=== PATIENT | female | born 1950 | race Caucasian/White ===

== ENCOUNTER 2017-02-07 13:49 | Emergency (ER) | payer MEDICARE, OTHER, SELFPAY ==
--- NOTE | 2017-02-07 14:31 | EDM.PDOC ---
[id number] Complaint: FALL RIGHT WRIST, POSSIBLE FRACTURE Time Seen by Provider: 02/07/17 14:15 Source of Information: Reports: Patient History Limitations: Reports: No Limitations - History of Present Illness INITIAL COMMENTS - FREE TEXT/NARRATIVE: 66-year-old relatively healthy female fell and hurt her right wrist. Drove herself to the hospital. 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: - Infectious Disease History Infectious Disease History: Reports: Chicken Pox, Measles, Mumps - Past Surgical History GI Surgical History: Reports: Colonoscopy Social & Family History - Tobacco Use Smoking Status *Q: Never Smoker Second Hand Smoke Exposure: No - Caffeine Use Caffeine Use: Reports: Coffee - Alcohol Use Days Per Week of Alcohol Use: 0 - Recreational Drug Use Recreational Drug Use: No Review of Systems - Review of Systems Review Of Systems: See Below Constitutional: Denies: Fever Respiratory: Denies: Shortness of Breath, Cough Cardiovascular: Denies: Chest Pain GI/Abdominal: Denies: Abdominal Pain Skin: Denies: Bruising Neurological: Denies: Headache Psychiatric: Reports: No Symptoms ED EXAM, GENERAL - Physical Exam Exam: See Below Exam Limited By: No Limitations General Appearance: Alert, No Apparent Distress (Appears uncomfortable but not distressed) Respiratory/Chest: No Respiratory Distress, Lungs Clear, Other (Collarbones are nontender) Cardiovascular: Regular Rate, Rhythm Extremities: Other (Patient has tenderness and slight deformity of the right rest, distal CS is intact) Neurological: Alert, Oriented Psychiatric: Normal Affect, Normal Mood Skin Exam: Warm, Dry Course - Vital Signs Last Recorded V/S: Last Vital Signs Temp 98.1 F 02/07/17 16:15 Pulse 67 02/07/17 16:15 Resp 16 02/07/17 16:15 BP 144/78 H 02/07/17 16:15 Pulse Ox 98 02/07/17 16:15 - Orders/Labs/Meds Orders: Active Orders 24 hr Category Date Time Status Fluoro Up To 1Hr [CR] Stat Exams 02/07/17 Taken Wrist Comp Min 3V Rt [CR] Stat Exams 02/07/17 14:26 Taken Meds: Medications Discontinued Medications Generic Name Dose Route Start Last Admin Trade Name Jessika PRN Reason Stop Dose Admin Propofol Confirm 02/07/17 15:00 Diprivan 20 Ml Administered 02/07/17 15:01 Dose 200 mg .ROUTE .STK-MED ONE - Re-Assessments/Exams Free Text/Narrative Re-Assessment/Exam: 02/07/17 14:31 A right wrist x-ray was obtained. 02/07/17 15:49 There was a significant displaced distal radius fracture. Dr. Antolin Saenz, orthopedics, was consulted and using propofol sedation the fracture was reduced satisfactorily. The reduction and splinting was done by Dr. Saenz. Patient was then placed in a sling and will recheck with orthopedics next week. Departure - Departure Time of Disposition: 16:36 Disposition: Home, Self-Care 01 Condition: good Clinical Impression: Distal radius fracture, right Qualifiers: Encounter type: initial encounter Fracture type: closed Fracture morphology: Colles' Qualified Code(s): S52.531A - Colles' fracture of right radius, initial encounter for closed fracture - Discharge Information Instructions: Wrist Fracture Treated With Immobilization Referrals: PCP,None [Primary Care Provider] - Forms: ED Department Discharge Care Plan Goals: Keep arm in splint and sling until next week so recheck on Saturday. See Dr. Prem Saenz Saturday. Ibuprofen or naproxen will help with pain, add stronger pain medication as prescribed. Return sooner if concerns. - My Orders Last 24 Hours: My Active Orders 02/07/17 Fluoro Up To 1Hr [CR] Stat 02/07/17 14:26 Wrist Comp Min 3V Rt [CR] Stat - Assessment/Plan Last 24 Hours: My Active Orders 02/07/17 Fluoro Up To 1Hr [CR] Stat 02/07/17 14:26 Wrist Comp Min 3V Rt [CR] Stat
[2017-02-07] MEDS ORDERED: Propofol 200 MG/20 ML SDV ONE (15:00)
--- NOTE | 2017-02-07 15:30 | PCM.CONS ---
H&P History of Present Illness - General Date of Service: 02/07/17 Source of Information: Patient History Limitations: Reports: No Limitations - History of Present Illness Onset of Symptoms: Reports: Today, Sudden Duration of Symptoms: Reports: Hour(s): Location: Reports: Upper Extremity, Right Quality: Reports: Ache, Burning, Pressure Severity: Severe Improves with: Reports: None Worsens with: Reports: Movement Right Wrist Pain Score (Numeric/FACES): 10 - Related Data Allergies/Adverse Reactions: Allergies Allergy/AdvReac Type Severity Reaction Status Date / Time No Known Allergies Allergy Verified 02/07/17 14:15 Home Medications: Home Meds Hydrochlorothiazide/Lisinopril [Lisinopril-HCTZ 20-25 MG] 1 tab PO DAILY [History] Past Medical History Cardiovascular History: Reports: Hypertension 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: - Infectious Disease History Infectious Disease History: Reports: Chicken Pox, Measles, Mumps - Past Surgical History GI Surgical History: Reports: Colonoscopy Social & Family History - Tobacco Use Smoking Status *Q: Never Smoker Second Hand Smoke Exposure: No - Caffeine Use Caffeine Use: Reports: Coffee - Alcohol Use Days Per Week of Alcohol Use: 0 - Recreational Drug Use Recreational Drug Use: No H&P Review of Systems - Review of Systems: Review Of Systems: See Below General: Reports: No Symptoms HEENT: Reports: No Symptoms Pulmonary: Reports: No Symptoms Cardiovascular: Reports: No Symptoms Gastrointestinal: Reports: No Symptoms Genitourinary: Reports: No Symptoms Musculoskeletal: Reports: Arm Pain, Hand Pain Skin: Reports: No Symptoms Psychiatric: Reports: No Symptoms Neurological: Reports: No Symptoms Hematologic/Lymphatic: Reports: No Symptoms Immunologic: Reports: No Symptoms Exam - Exam Exam: See Below - Vital Signs Vital Signs: Last Vital Signs Temp 98.1 F 02/07/17 14:43 Pulse 79 02/07/17 14:43 Resp 16 02/07/17 14:43 BP 139/82 02/07/17 14:43 Pulse Ox 97 02/07/17 14:43 Weight: 185 lb 3.013 oz - Exam General: Alert, Oriented, 4 HEENT: PERRLA, Hearing Intact, Mucosa Moist & [place], Nares Patent, Normal Nasal Septum, Posterior Pharynx Clear, Conjunctiva Clear, EOMI, EACs Clear, TMs Clear Extremities: Normal Pulses Peripheral Pulses: 2+: Radial (R) Skin: Warm, Dry, Intact Neuro Extensive - Mental Status: Alert, Oriented x3, Normal Mood/Affect, Normal Cognition Consult PN Assessment/Plan Procedures: Procedures EMERGENCY DEPT VISIT (12/19/13) (1) Distal radius fracture, right SNOMED Code(s): 488072921 Code(s): S52.501A - UNSP FRACTURE OF THE LOWER END OF RIGHT RADIUS, INIT Current Visit: Yes Qualifiers: Encounter type: initial encounter Fracture type: closed Fracture morphology: Colles' Qualified Code(s): S52.531A - Colles' fracture of right radius, initial encounter for closed fracture Problem List Initiated/Reviewed/Updated: Yes Plan: I had the pleasure visiting with the patient in clinic. She is a pleasant 66- year-old female who tripped on her right. She fell her outstretched right hand. She drove herself [place] a nearby town the emergency department where she was found to have a displaced distal radius and ulnar fracture. UPPER EXTREMITY Musculoskeletal Physical Examination Constitutional: Vital signs including height and weight were reviewed and documented on the patient's chart. General appearance demonstrates normal development and overweight body habitus. HEENT: Normocephalic, atraumatic. Neurological: The patient is alert and oriented to person, place, and time. Mood and affect are appropriate. Gait and station are normal. Intact sensation is noted. Coordination and balance are normal. Right upper extremity: The skin is warm dry and intact. There is deformity of the right wrist. Distal pulses are plus to 4. Capillary refill time is less than 2 seconds. Distal sensation is grossly intact. Imaging: Multiple views of the right wrist were visualized incorporated into the decision-making process. There is an apex volar completely displaced distal radius fracture and ulnar styloid fracture present. There is radial deviation of the distal fragment of the radius. Plan: I advised the patient we should do a closed reduction. Risks and benefits of procedure explained to the patient. From cells obtained. Anesthesia was used. This was provided by emergency department physician. This was done are correct fluoroscopic visualization. A short arm splint was placed. [id number] Requesting Provider: teresa Patient History Reviewed: Yes Admission H&P Reviewed: Yes Notified Requestor: Yes
[2017-02-07 16:27] VITALS: BP 144/78
--- NOTE | 2017-02-07 20:26 | OR ---
DATE OF PROCEDURE: 02/07/2017 PREOPERATIVE DIAGNOSIS: Right distal radius and ulnar fracture closed. POSTOPERATIVE DIAGNOSIS: Right distal radius and ulnar fracture closed. PROCEDURE: Closed reduction and splinting and short-arm splint application of right distal radius and ulnar fracture. ANESTHESIA: Conscious sedation provided by Dr. Steve Ng, emergency department physician. FLUID: Lactated Ringer solution. ESTIMATED BLOOD LOSS: Zero. COMPLICATIONS: None. SPECIMEN: None. DISCHARGE DISPOSITION: The patient was discharged from the emergency room later. PROCEDURE IN DETAIL: The patient was seen in the emergency department. She was found to have the above-mentioned diagnosis. Risks and benefits of the procedure were explained to the patient. Informed consent was obtained. Conscious sedation was provided by Dr. Ng. A closed reduction was then performed followed by a short-arm splinting. Fluoroscopy was used. Final films were taken. The patient was allowed to awaken from conscious sedation. She will have a followup at 10:15 on 02/10/2017. Best Saenz DO /[id number]
--- NOTE | 2017-02-08 09:20 | CR ---
Right wrist Findings: There is a severely displaced comminuted fracture of the distal radial metaphysis. There is posterio r medial displacement of the distal fragments as well as carpus. There is a fracture of the ulnar st yloid process. The carpal bones appear intact. Impression: 1. Severely displaced comminuted fracture of the distal radius. 2. Ulnar styloid process fracture.
== END 2017-02-07 16:20 | disposition home or self-care (01) ==
LOC: JP.ED 13:49
DX: S52.531A Colles' fracture of right radius, initial encounter for closed fracture (principal); W19.XXXA Unspecified fall, initial encounter; I10 Essential (primary) hypertension; Z79.899 Other long term (current) drug therapy
CPT/HCPCS: 25605; 73110; 76000; 99283; J2704; 99284

== ENCOUNTER 2017-02-12 10:31 | Day surgery (SDC) | payer MEDICARE, OTHER, SELFPAY ==
[2017-02-12] MEDS ORDERED: Lactated Ringers 1,000 ML IV SCH (11:15)
[2017-02-12] MEDS ORDERED: ceFAZolin 2 GM in Sodium Chloride 0.9% 50 ML IV ONE (12:00)
[2017-02-12] MEDS ORDERED: Povidone-Iodine 10% Soln 118.25 ML Bottle ONE (12:05)
[2017-02-12] MEDS ORDERED: Bupivacaine 0.5%/EPINEPHrine 1:200,000 50 ML MDV ONE (12:05)
[2017-02-12] MEDS ORDERED: fentaNYL 250 MCG/5 ML SDV ONE (14:43)
[2017-02-12] MEDS ORDERED: Neostigmine Methylsulfate 1 MG/ML 5 ML Syringe ONE (14:45)
[2017-02-12] MEDS ORDERED: Propofol 200 MG/20 ML SDV ONE (14:45)
[2017-02-12] MEDS ORDERED: Succinylcholine/Normal Saline 200 MG/10 ML Syringe ONE (14:45)
[2017-02-12] MEDS ORDERED: Ondansetron 4 MG/2 ML SDV ONE (14:45)
[2017-02-12] MEDS ORDERED: Dexamethasone 4 MG/ML SDV ONE (14:45)
[2017-02-12] MEDS ORDERED: Rocuronium 50 MG/5 ML Vial ONE (14:45)
[2017-02-12] MEDS ORDERED: fentaNYL 100 MCG/2 ML SDV IVPUSH ONE (16:30)
--- NOTE | 2017-02-12 17:03 | OR ---
DATE OF PROCEDURE: 02/12/2017 PREOPERATIVE DIAGNOSIS: Right distal radius fracture, closed. POSTOPERATIVE DIAGNOSIS: Right distal radius fracture, closed. PROCEDURE: 1. Open reduction, internal fixation, right distal radius. 2. Application of short-arm splint. EDGE BANDING OFF BEARER: Meseret Perez NP. ANESTHESIA: General endotracheal intubation. FLUID: Lactated Ringer solution. ESTIMATED BLOOD LOSS: 10 mL. COMPLICATIONS: None. SPECIMEN: None. DISCHARGE DISPOSITION: Stable to PACU. HISTORY AND INDICATIONS FOR THE PROCEDURE: The patient was seen last Saturday in the ER. She fell down and falling on her outstretched right hand. I was brought in and did a closed reduction at that time and splinting. She was then subsequently seen in the clinic on Saturday. Preoperative imaging confirmed the above-mentioned diagnosis. Risks and benefits of the procedure were explained to the patient. Informed consent was obtained. DETAILS OF PROCEDURE: The patient was seen preoperatively by myself and the Anesthesia Staff in the preop holding area where the operative site was marked. She was brought to the operative suite by the Anesthesia Staff where general anesthesia was administered. The right upper extremity had a well-padded tourniquet placed on it. The right upper extremity was prepped and draped in a sterile manner. Time-out was called identifying the correct patient, correct procedure, the correct site, and antibiotics had been given with appropriate period of time. The right upper extremity was then exsanguinated and tourniquet was raised to 250 mmHg. An incision was made in line over the flexor carpi radialis tendon from the radiocarpal joint approximately 12 cm. The FCR tendon was then carried radially and then incised with a #15 blade through the dorsal sheath of the FCR tendon down to the pronator quadratus, which was then released along its radial border. I then used a [place] elevator and 15 blade to remove any extra soft tissue from the distal radius and then using a [place] to achieve more of a reduction, which was confirmed on fluoroscopy. The fluoroscopy unit had been sterilely draped prior to the procedure. The small plate was then used and found to be in good alignment under fluoroscopy. I then drilled the oblong hole and placed a 14 mm screw. We then drilled our radial styloid PEG and placed it, this was in good position. We then drilled the remainder of the holes and filled them and then drilled our remaining cortical holes and filled those too. We then took final AP and lateral films and then copiously irrigated with saline and then closed the subcutaneous layer with 2-0 Vicryl sutures followed by horizontal mattress nylon sutures for the skin followed by sterile dressing. The tourniquet was let down at 41 minute. A sterile dressing was placed. A short-arm splint was placed. The patient was then allowed to awaken, where general anesthesia and taken to the PACU in stable condition. Best Saenz DO /[id number]
[2017-02-12] MEDS ORDERED: Acetaminophen/oxyCODONE 325-5 MG Tab PO ONE (17:30)
[2017-02-12 17:31] VITALS: BP 134/63
== END 2017-02-12 17:45 | disposition home or self-care (01) ==
LOC: JP.SDS 10:31
PROVIDERS: ATTEND Orthopaedic Surgery
PROC: 0PSH04Z Reposition Right Radius with Internal Fixation Device, Open Approach (ICD-10-PCS; principal; 2017-02-12)
DX: S52.501A Unspecified fracture of the lower end of right radius, initial encounter for closed fracture (principal); I10 Essential (primary) hypertension; Z79.899 Other long term (current) drug therapy
CPT/HCPCS: 25607; A9270; C1713; J0690; J1100; J2405; J2704; J3010; J7050; J7120; 36415